=== PATIENT | female | born 1990 | race Caucasian/White ===

== ENCOUNTER 2021-03-03 12:40 | Emergency (ER) | payer OTHER ==
[~2021-03-03] VITALS: Ht 180.3 cm; Wt 86.2 kg
[2021-03-03] MEDS ORDERED: PRENATAL MULTI1 EAC3 PO (13:21)
== END 2021-03-03 15:20 | disposition home or self-care (01) ==
LOC: ED 12:40
DX: O9A.212 Injury, poisoning and certain other consequences of external causes complicating pregnancy, second trimester (principal); S70.02XA Contusion of left hip, initial encounter; Z3A.20 20 weeks gestation of pregnancy; V80.010A Animal-rider injured by fall from or being thrown from horse in noncollision accident, initial encounter
CPT/HCPCS: 76815; 99283-25